=== PATIENT | male | born 1990 | race Caucasian/White ===

== ENCOUNTER 2017-09-10 07:21 | Emergency (ER) | payer MEDICAID ==
[~2017-09-10] VITALS: Ht 172.7 cm; Wt 70.0 kg
[~2017-09-10 07:21] MED LIST: NALO0.4V14 IM
[2017-09-10 07:26] VITALS: BP 118/80
[2017-09-10] MEDS ORDERED: BACITRACIN ZINC OINT 500U/GM, 0.9 GM ONE (07:55)
[2017-09-10] MEDS ORDERED: KETOROLAC 30 MG/1 ML IM ONE (08:00)
[2017-09-10] MEDS ORDERED: KETOROLAC 30 MG/1 ML ONE (08:01)
== END 2017-09-10 09:10 | disposition home or self-care (01) ==
LOC: ED 07:58
DX: S29.012A Strain of muscle and tendon of back wall of thorax, initial encounter (principal); Z59.0 Homelessness; Z72.9 Problem related to lifestyle, unspecified; F17.210 Nicotine dependence, cigarettes, uncomplicated; F32.9 Major depressive disorder, single episode, unspecified; Y04.0XXA Assault by unarmed brawl or fight, initial encounter; Y93.89 Activity, other specified; Y99.8 Other external cause status; Y92.481 Parking lot as the place of occurrence of the external cause
CPT/HCPCS: 72110; 96372; 99284; J1885

== ENCOUNTER 2017-10-21 00:50 | Emergency (ER) | payer MEDICAID ==
[~2017-10-21] VITALS: Ht 172.7 cm; Wt 70.9 kg
[2017-10-21 00:51] VITALS: BP 121/79
[2017-10-21] MEDS ORDERED: LIDOCAINE-MPF 1%, 5ML INFIL ONE (01:30)
[2017-10-21] MEDS ORDERED: LIDOCAINE-MPF 1%, 5ML ONE (01:42)
== END 2017-10-21 02:21 | disposition home or self-care (01) ==
LOC: ED 01:42
DX: L02.512 Cutaneous abscess of left hand (principal); L03.113 Cellulitis of right upper limb; F32.9 Major depressive disorder, single episode, unspecified; Z88.8 Allergy status to other drugs, medicaments and biological substances
CPT/HCPCS: 10060; 99283

== ENCOUNTER 2019-10-05 19:32 | Inpatient (IN) | payer MEDICAID, OTHER ==
[~2019-10-05] VITALS: Ht 172.7 cm; Wt 79.5 kg
[2019-10-05] MEDS ORDERED: ONDANSETRON 2MG/ML, 2ML ONE (20:12)
[2019-10-05] MEDS ORDERED: HYDROmorphone 1 MG/ML, 1ML INJ ONE (20:12)
[2019-10-05] MEDS ORDERED: ONDANSETRON 2MG/ML, 2ML IVPush ONE (20:30)
[2019-10-05] MEDS ORDERED: LIDOCAINE 1%-EPI 1:100K, 20ML INFIL ONE (20:30)
[2019-10-05] MEDS ORDERED: HYDROmorphone 2 MG/ML, 1ML IVPush PRN (20:30)
[2019-10-05] MEDS ORDERED: LIDOCAINE 1%-EPI 1:100K, 20ML ONE (20:36)
[2019-10-05 20:40] LABS: MEAN CORPUSCULAR HEMOGLOBIN 30.3 pg (27.5-34.5); MEAN CORPUSCULAR HGB CONC 33.3 g/dL (33.2-36.2); MEAN CORPUSCULAR VOLUME 90.9 fL (81-97); MEAN PLATELET VOLUME 7.2 fL (7.4-10.4); PLATELET COUNT 400 x10^3/uL (130-400); RED BLOOD COUNT 5.32 x10^6/uL (4.38-5.82); RED CELL DISTRIBUTION WIDTH 12.9 % (9.4-14.8)
[2019-10-05 20:48] LABS: ALBUMIN 3.2 g/dL (3.4-5.0); ANION GAP 7 mmol/L (5-15); CALCIUM 8.9 mg/dL (8.5-10.1); CHLORIDE 93 mmol/L (98-107); CREATININE 1.12 mg/dL (0.7-1.3)
[2019-10-05 20:54] LABS: BASOPHILS # (AUTO) 0.04 x10^3/uL (0-0.1); BASOPHILS % (AUTO) 0 % (0-1); EOSINOPHILS # (AUTO) 0.15 x10^3/uL (0-0.4); EOSINOPHILS % (AUTO) 1 % (1-7); LYMPHOCYTES # (AUTO) 1.75 x10^3/uL (1-3.4); LYMPHOCYTES % (AUTO) 11 % (22-44); MD SCAN; MONOCYTES # (AUTO) 1.05 x10^3/uL (0.2-0.8); MONOCYTES % (AUTO) 7 % (2-9); NEUTROPHILS # (AUTO) 13.28 x10^3/uL (1.8-6.8); NEUTROPHILS % (AUTO) 82 % (42-75)
--- NOTE | 2019-10-05 21:22 | NUR ---
REPORT FROM CAIN GIORDANO. PT IN PRONE POSITION [employer] DRAINS ABSCESS ON RIGHT BUTTOCK. AREA PACKED WITH IODIFORM, AND INSTRUCTIONS ON CARE GIVEN TO PATIENT. INTRODUCTION GIVEN AND ASSESSMENT PERFORMED.
[2019-10-05] MEDS ORDERED: SODIUM CHLORIDE 0.9% 1,000ML IVBOLUS ONE (22:00)
[2019-10-05] MEDS ORDERED: CEFTRIAXONE PMX 1GM/50ML 50 ML IV ONE (22:00)
[2019-10-05] MEDS ORDERED: VANCOMYCIN PER PHARMACY MC PRN ×2 (22:00→22:30)
[2019-10-05] MEDS ORDERED: OXYcodone/APAP 5/325MG TABLET PO PRN (22:30)
[2019-10-05] MEDS ORDERED: BISACODYL 10 MG SUPP PR PRN (22:30)
[2019-10-05] MEDS ORDERED: ONDANSETRON ODT 4 MG PO PRN (22:30)
[2019-10-05] MEDS ORDERED: POLYETHYLENE GLYCOL 17 GM PACKET PO PRN (22:30)
[2019-10-05] MEDS ORDERED: VANCOMYCIN 1,600 MG in SODIUM CHLORIDE 0.9% 250 ML IV ONE (22:30)
[2019-10-05] MEDS ORDERED: HEPARIN 5,000 UNITS/ML, 1ML SQ SCH (22:30)
[2019-10-05] MEDS ORDERED: ACETAMINOPHEN 325 MG TABLET PO PRN (22:30)
[2019-10-05] MEDS ORDERED: CEFTRIAXONE PMX 1GM/50ML 50 ML ONE (22:33)
[2019-10-05] MEDS: AMPICILLIN/SULBACTAM 3 GM in SODIUM CHLORIDE 0.9% 100 ML IV SCH (22:53)
--- NOTE | 2019-10-05 22:56 | NUR ---
VANCOMYCIN LOCKED OFF AND SENT UP DISCONECTED FROM PT DUE TO LACK OF PUMP ON ER FLOOR. TAMARA GIORDANO GIVEN REPORT.
[2019-10-05 23:12] VITALS: BP 137/93
[2019-10-05] MEDS: SODIUM CHLORIDE 0.9% 1,000 ML IV SCH (23:33)
[2019-10-05] MEDS: NICOTINE 14MG/24 HR PATCH.TD24 TD SCH (23:34)
[2019-10-05] MEDS ORDERED: PHARMACOKINETIC MONITORING MC PRN (23:45)
[2019-10-05] MEDS ORDERED: PHARMACOKINETIC CONSULTATION MC ONE (23:45)
[2019-10-06 01:15] VITALS: BP 147/85
[2019-10-06] MEDS: AMPICILLIN/SULBACTAM 3 GM in SODIUM CHLORIDE 0.9% 100 ML IV SCH ×4 (04:48→22:45)
[2019-10-06 05:48] LABS: BASOPHILS # (AUTO) 0.05 x10^3/uL (0-0.1); BASOPHILS % (AUTO) 0 % (0-1); EOSINOPHILS # (AUTO) 0.17 x10^3/uL (0-0.4); EOSINOPHILS % (AUTO) 1 % (1-7); LYMPHOCYTES # (AUTO) 2.63 x10^3/uL (1-3.4); LYMPHOCYTES % (AUTO) 18 % (22-44); MD NO; MEAN CORPUSCULAR HGB CONC 32.8 g/dL (33.2-36.2); MEAN CORPUSCULAR VOLUME 91.7 fL (81-97); MEAN PLATELET VOLUME 7.3 fL (7.4-10.4); MONOCYTES # (AUTO) 1.32 x10^3/uL (0.2-0.8); MONOCYTES % (AUTO) 9 % (2-9); NEUTROPHILS # (AUTO) 10.65 x10^3/uL (1.8-6.8); NEUTROPHILS % (AUTO) 72 % (42-75); PLATELET COUNT 361 x10^3/uL (130-400); RED BLOOD COUNT 5.03 x10^6/uL (4.38-5.82); RED CELL DISTRIBUTION WIDTH 12.9 % (9.4-14.8)
[2019-10-06 06:11] LABS: ANION GAP 5 mmol/L (5-15); CALCIUM 8.7 mg/dL (8.5-10.1); CHLORIDE 101 mmol/L (98-107)
[2019-10-06] MEDS: SODIUM CHLORIDE 0.9% 1,000 ML IV SCH (06:26)
[2019-10-06] MEDS ORDERED: ACETAMINOPHEN 325 MG TABLET PO PRN (08:00)
[2019-10-06 08:25] VITALS: BP 119/78
[2019-10-06] MEDS: SENNA/DOCUSATE TABLET PO SCH (10:31)
[2019-10-06] MEDS: ENOXAPARIN 40 MG/0.4 ML SQ SCH (10:31)
[2019-10-06] MEDS: OXYcodone/APAP 5/325MG TABLET PO PRN ×2 (10:32→16:48)
[2019-10-06] MEDS: VANCOMYCIN 1,500 MG in SODIUM CHLORIDE 0.9% 250 ML IV SCH ×2 (11:11→23:47)
[2019-10-06 14:15] VITALS: BP 121/74
[2019-10-06 19:00] VITALS: BP 126/80
[2019-10-06 20:04] VITALS: BP 94/64
[2019-10-06] MEDS: NICOTINE 14MG/24 HR PATCH.TD24 TD SCH (22:30)
[2019-10-07 01:31] VITALS: BP 112/68
[2019-10-07] MEDS: AMPICILLIN/SULBACTAM 3 GM in SODIUM CHLORIDE 0.9% 100 ML IV SCH ×4 (04:35→23:35)
[2019-10-07] MEDS: SODIUM CHLORIDE 0.9% 1,000 ML IV SCH ×2 (04:37→17:46)
[2019-10-07 06:46] LABS: BASOPHILS # (AUTO) 0.05 x10^3/uL (0-0.1); BASOPHILS % (AUTO) 1 % (0-1); EOSINOPHILS % (AUTO) 4 % (1-7); LYMPHOCYTES # (AUTO) 1.74 x10^3/uL (1-3.4); LYMPHOCYTES % (AUTO) 20 % (22-44); MD NO; MEAN CORPUSCULAR HEMOGLOBIN 30.4 pg (27.5-34.5); MEAN CORPUSCULAR VOLUME 92.2 fL (81-97); MEAN PLATELET VOLUME 7.1 fL (7.4-10.4); MONOCYTES # (AUTO) 0.71 x10^3/uL (0.2-0.8); MONOCYTES % (AUTO) 8 % (2-9); NEUTROPHILS # (AUTO) 5.72 x10^3/uL (1.8-6.8); NEUTROPHILS % (AUTO) 67 % (42-75); PLATELET COUNT 384 x10^3/uL (130-400); RED BLOOD COUNT 5.05 x10^6/uL (4.38-5.82); RED CELL DISTRIBUTION WIDTH 13.3 % (9.4-14.8)
[2019-10-07 08:30] VITALS: BP 102/62
[2019-10-07] MEDS: SENNA/DOCUSATE TABLET PO SCH (09:00)
[2019-10-07] MEDS: ENOXAPARIN 40 MG/0.4 ML SQ SCH (09:54)
[2019-10-07] MEDS: OXYcodone/APAP 5/325MG TABLET PO PRN ×2 (09:55→16:08)
[2019-10-07] MEDS: VANCOMYCIN 1,500 MG in SODIUM CHLORIDE 0.9% 250 ML IV SCH ×2 (11:20→21:43)
[2019-10-07 13:17] VITALS: BP 124/80
[2019-10-07 19:16] VITALS: BP 110/71
[2019-10-07] MEDS: NICOTINE 14MG/24 HR PATCH.TD24 TD SCH (22:30)
[2019-10-08 01:23] VITALS: BP 134/91
[2019-10-08] MEDS: AMPICILLIN/SULBACTAM 3 GM in SODIUM CHLORIDE 0.9% 100 ML IV SCH ×2 (05:28→12:50)
[2019-10-08 06:49] VITALS: BP 143/83
[2019-10-08] MEDS ORDERED: OXYcodone/APAP 5/325MG TABLET PO PRN (08:00)
[2019-10-08] MEDS: VANCOMYCIN 1,500 MG in SODIUM CHLORIDE 0.9% 250 ML IV SCH (08:50)
[2019-10-08] MEDS: ACETAMINOPHEN 325 MG TABLET PO SCH ×2 (08:51→14:00)
[2019-10-08] MEDS ORDERED: SENNA/DOCUSATE TABLET PO PRN (09:00)
[2019-10-08] MEDS: ENOXAPARIN 40 MG/0.4 ML SQ SCH (10:00)
[2019-10-08] MEDS ORDERED: NICOTINE 21 MG/24 HR PATCH.TD24 TD SCH (13:30)
[2019-10-08 15:02] VITALS: BP 150/90
== END 2019-10-08 15:48 | disposition left against medical advice (07) | DRG 872 ==
LOC: ED 22:09 → EDIP 22:23 → 3N 23:09
PROVIDERS: ADMIT Family Medicine; ATTEND Internal Medicine
PROC: 0Y910ZZ Drainage of Left Buttock, Open Approach (ICD-10-PCS; principal; 2019-10-05)
PROC: 0Y900ZZ Drainage of Right Buttock, Open Approach (ICD-10-PCS; 2019-10-05)
DX: A41.9 Sepsis, unspecified organism (principal); E87.1 Hypo-osmolality and hyponatremia; L02.31 Cutaneous abscess of buttock; L03.317 Cellulitis of buttock; B19.20 Unspecified viral hepatitis C without hepatic coma; F11.10 Opioid abuse, uncomplicated; F15.10 Other stimulant abuse, uncomplicated; Z53.29 Procedure and treatment not carried out because of patient's decision for other reasons; F17.210 Nicotine dependence, cigarettes, uncomplicated; Z59.0 Homelessness; Z88.8 Allergy status to other drugs, medicaments and biological substances
CPT/HCPCS: 36415; 80048; 80074; 80202; 82040; 83605; 85025; 87040; 87521; 87806; 96374; 96375; G0378; J0295; J0696; J1170; J1644; J1650; J2405; J3370; G0475; J7030; J7050

== ENCOUNTER 2020-01-02 20:25 | Emergency (ER) | payer MEDICAID ==
[~2020-01-02] VITALS: Ht 172.7 cm; Wt 76.4 kg
[2020-01-02 20:31] VITALS: BP 126/77
--- NOTE | 2020-01-02 21:20 | NUR ---
PT TOLD BEEF RIBBER THAT HE WAS LEAVING AND WAS NOT GOING TO WAIT. PT CALLED IN LOBBY X3 WITHOUT ANY PT PRESENT
== END 2020-01-02 21:23 | disposition left against medical advice (07) ==
LOC: ED 21:15
DX: M54.9 Dorsalgia, unspecified (principal); Z53.21 Procedure and treatment not carried out due to patient leaving prior to being seen by health care provider